=== PATIENT | female | born 1980 | race Caucasian/White ===

== ENCOUNTER 2021-01-04 02:35 | Emergency (ER) | payer MEDICAID ==
--- NOTE | 2021-01-04 02:40 | NUR ---
CALLED TO BE TRIAGE, NO RESPONSE PATIENT LEFT WITHOUT BEING SEEN BY DR. HOFFMANN. NO FURTHER CARE PROVIDED FOR PATIENT.
--- NOTE | 2021-01-04 02:50 | NUR ---
CALLED FOR THE SECOND TIME , NO RESPONSE
--- NOTE | 2021-01-04 03:02 | NUR ---
CALLED FOR THE THIRD TIME , NO RESPONSE
== END 2021-01-04 02:40 | disposition left against medical advice (07) ==
LOC: MED 02:35
DX: Z53.21 Procedure and treatment not carried out due to patient leaving prior to being seen by health care provider (principal)

== ENCOUNTER 2023-12-13 01:10 | Emergency (ER) | payer MEDICAID ==
[~2023-12-13] VITALS: Ht 152.4 cm; Wt 84.8 kg
[2023-12-13 01:21] VITALS: BP 189/118; PULSE 94; RESP 18; TEMP 98.6; O2SAT 96
[2023-12-13] MEDS: LORazepam 1 MG TAB PO ONE (01:52)
[2023-12-13 02:06] LABS: BASOPHILS # (AUTO) 0.1 K/uL (0.00-0.22); BASOPHILS % (AUTO) 0.7 % (0.0-2.0); EOSINOPHILS # (AUTO) 0.3 K/uL (0-0.4); EOSINOPHILS % (AUTO) 3.2 % (0.0-4.0); HEMATOCRIT 41.5 % (36-48); HEMOGLOBIN 14.7 g/dL (12.0-16.0); LYMPHOCYTES # (AUTO) 3.1 K/uL (2.5-16.5); LYMPHOCYTES % (AUTO) 30.3 % (20.5-51.1); MEAN CORPUSCULAR HEMOGLOBIN 29 pg (27-31); MEAN CORPUSCULAR HGB CONC 36 g/dL (33-37); MEAN CORPUSCULAR VOLUME 80.2 fL (80-94); MONOCYTES # (AUTO) 0.7 K/uL (0.8-1.0); MONOCYTES % (AUTO) 6.7 % (1.7-9.3); NEUTROPHILS % (AUTO) 59.1 % (42.2-75.2); PLATELET COUNT (AUTO) 333 K/uL (140-450); RED BLOOD CELL COUNT(AUTO) 5.17 MIL/uL (4.20-5.40); RED CELL DISTRIBUTION WIDTH 14.1 % (11.6-13.7); WHITE BLOOD COUNT (AUTO) 10.1 K/uL (4.8-10.8)
[2023-12-13 02:15] LABS: ANION GAP 9.6 (8-16); CALCIUM 9.3 mg/dL (8.5-10.1); CARBON DIOXIDE 33.3 mmol/L (21-32); CREATININE 0.8 mg/dL (0.6-1.3)
[2023-12-13 02:18] LABS: INR 0.94 (0.8-1.2); PARTIAL THROMBOPLASTIN TIME 26.4 secs (22-35.6); POTASSIUM 2.9 mmol/L (3.5-5.1); PROTHROMBIN TIME 9.9 secs (10.8-13.4)
[2023-12-13 03:20] VITALS: BP 160/84; PULSE 82; RESP 13; O2SAT 97
[2023-12-13] MEDS: POTASSIUM CHLORIDE 10 MEQ TABER PO ONE (03:51)
== END 2023-12-13 04:19 | disposition left against medical advice (07) ==
LOC: MED 01:10
DX: R07.9 Chest pain, unspecified (principal); F15.10 Other stimulant abuse, uncomplicated; Z88.1 Allergy status to other antibiotic agents
CPT/HCPCS: 36415; 71045; 80048; 81025; 84484; 85025; 85610; 85730; 93005; 99285; Q0092

== ENCOUNTER 2024-01-20 19:12 | Emergency (ER) | payer MEDICAID ==
[~2024-01-20] VITALS: Ht 154.9 cm; Wt 49.9 kg
[2024-01-20 19:19] VITALS: BP 180/105; PULSE 79; RESP 16; TEMP 98; O2SAT 99
[2024-01-20 20:39] LABS: BASOPHILS % (AUTO) 0.6 % (0.0-2.0); EOSINOPHILS # (AUTO) 0.3 K/uL (0-0.4); EOSINOPHILS % (AUTO) 4.1 % (0.0-4.0); HEMATOCRIT 39.8 % (36-48); HEMOGLOBIN 13.9 g/dL (12.0-16.0); LYMPHOCYTES # (AUTO) 2.2 K/uL (2.5-16.5); LYMPHOCYTES % (AUTO) 29.3 % (20.5-51.1); MEAN CORPUSCULAR HEMOGLOBIN 28 pg (27-31); MEAN CORPUSCULAR HGB CONC 35 g/dL (33-37); MEAN CORPUSCULAR VOLUME 80.8 fL (80-94); MONOCYTES # (AUTO) 0.8 K/uL (0.8-1.0); MONOCYTES % (AUTO) 10.2 % (1.7-9.3); NEUTROPHILS # (AUTO) 4.1 K/uL (1.8-7.7); NEUTROPHILS % (AUTO) 55.8 % (42.2-75.2); PLATELET COUNT (AUTO) 301 K/uL (140-450); RED BLOOD CELL COUNT(AUTO) 4.93 MIL/uL (4.20-5.40); RED CELL DISTRIBUTION WIDTH 14.1 % (11.6-13.7); WHITE BLOOD COUNT (AUTO) 7.4 K/uL (4.8-10.8)
[2024-01-20] MEDS ORDERED: hydrALAZINE 20 MG/ML VIAL IM ONE (20:40)
[2024-01-20] MEDS: ACETAMINOPHEN EXTRA STRENGTH 500 MG TAB PO ONE (20:47)
[2024-01-20 20:55] LABS: ALANINE AMINOTRANSFERASE 35 U/L (12-78); ALBUMIN 2.8 g/dL (3.4-5.0); ALKALINE PHOSPHATASE 97 U/L (50-136); ANION GAP 10.8 (8-16); ASPARTATE AMINOTRANSFERASE 20 U/L (15-37); CALCIUM 8.9 mg/dL (8.5-10.1); CARBON DIOXIDE 30.7 mmol/L (21-32); CHLORIDE 100 mmol/L (98-107); CREATININE 0.6 mg/dL (0.6-1.3); GFR ARICAN-AMERICAN 139 mL/min (>90); GFR NON ARICAN-AMERICAN 115 mL/min (>90); GLUCOSE 102 mg/dL (74-106); POTASSIUM 3.5 mmol/L (3.5-5.1); SODIUM SERUM 138 mmol/L (136-145); TOTAL BILIRUBIN 0.3 mg/dL (0.0-1.0); TOTAL PROTEIN, SERUM 7.2 g/dL (6.4-8.2); UREA NITROGEN, BLOOD 10 mg/dL (7-18)
[2024-01-20] MEDS ORDERED: SULF-59 PO (22:08)
[2024-01-20 22:24] VITALS: BP 148/79; PULSE 75; RESP 16; TEMP 97.7; O2SAT 99
== END 2024-01-20 22:24 | disposition home or self-care (01) ==
LOC: MED 19:12
DX: L03.115 Cellulitis of right lower limb (principal); R07.89 Other chest pain; I10 Essential (primary) hypertension; Z79.899 Other long term (current) drug therapy; Z88.1 Allergy status to other antibiotic agents
CPT/HCPCS: 36415; 71045; 80053; 84484; 85025; 93005; 99285